=== PATIENT | male | born 1990 | race African-American/Black ===

== ENCOUNTER 2021-06-23 20:33 | Emergency (ER) | payer SELFPAY ==
[~2021-06-23] VITALS: Ht 190.5 cm; Wt 97.5 kg
[2021-06-23 21:51] LABS: CLARITY,URINE CLEAR (CLEAR); COLOR,URINE YELLOW (YELLOW); KETONES,URINE 1+ (NEGATIVE); LEUKOCYTE ESTERASE ,URINE NEGATIVE (NEGATIVE); NITRITE,URINE NEGATIVE (NEGATIVE); PROTEIN,URINE DIPSTICK NEGATIVE (NEGATIVE); URINE UROBILINOGEN 0.2 mg/dL (0.2 - 1)
[2021-06-23 21:56] LABS: BACTERIA,URINE FEW /HPF
[2021-06-23 21:57] LABS: MUCUS,URINE MODERATE (RARE)
[2021-06-23] MEDS ORDERED: ZITHROMAX500 MG PO (22:34)
[2021-06-23] MEDS ORDERED: DOXYCYCLINE HY100 MG PO (22:34)
[2021-06-23 22:54] VITALS: BP 132/84
== END 2021-06-23 22:56 | disposition home or self-care (01) ==
LOC: ER 20:44
DX: R10.30 Lower abdominal pain, unspecified (principal); N50.819 Testicular pain, unspecified
CPT/HCPCS: 74176; 81001; 99283